=== PATIENT | male | born 1955 | race Caucasian/White ===

== ENCOUNTER → 2021-04-11 14:51 | Outpatient (CLI) | payer OTHER ==
[2021-04-11 16:50] LABS: LDL-HDL RATIO 1.4 ratio (1.5-3.5)
== END | disposition home or self-care (01) ==
LOC: D.LABREF 14:51
PROVIDERS: ATTEND Internal Medicine Interventional Cardiology
DX: E78.5 Hyperlipidemia, unspecified (principal)

== ENCOUNTER → 2021-05-02 11:02 | Outpatient (CLI) | payer OTHER ==
--- NOTE | 2021-05-06 08:13 | EC ---
PATIENT:JEANINE BISHOP DATE OF SERVICE: 05/02/21 SEX: M MEDICAL RECORD: [id number] DATE OF : 59 LOCATION:[facility] [place] AGE OF PATIENT: 65 ADMISSION DATE: 05/02/21 REFERRING PHYSICIAN: INTERPRETING PHYSICIAN: NELLIE ISAACS MD ECHOCARDIOGRAM REPORT ECHO CHARGES 4 ECHO COMPLETE Date: 05/02/21 CLINICAL DIAGNOSIS: HX OF HTN / HEART MURMUR ASSESS EF AND VALVES ECHOCARDIOGRAPHIC MEASUREMENTS (adult normal given) AC root (d.<3.7cm) 3.2 cm LV Septum d (<1.2 cm> 1.3 cm Valve Excursion 2.3 cm LV Septum (systole) 1.6 cm Left Atria (s.<4.0cm> 4.6 cm LVPW d(<1.2cm) 1.5 cm RV (d.<2.3cm) 3.4 cm LVPW (sytole) 2.0 cm LV diastole(<5.6CM) 5.3 cm MV E-F(>70mm/sec) cm LV systole 3.2 cm LVOT Diameter 2.4 cm MV exc.(>10mm) 1.9 cm Est.ejection fraction (50-75%) % DOPPLER: LVIT cm/sec A 57.0 cm/sec E 93.0 cm/sec LA cm/sec RVSP 22 mmHg LVOT 71 cm/sec AOP1/2T m/s Asc. Ao 125 cm/sec RVOT 80 cm/sec RA cm/sec PA 107 cm/sec AV Gradient Peak 6.23 mmHg AV Mean 3.56 mmHg AV Area 2.7 cm MV Gradient Peak 3.79 mmHg MV Mean 1.08 mmHg MV Area cm COMMENTS: Food Preservation Scientist: 2 CARTER MULLEN Cardiovascular Surgical Tech: 3 Dr. Hill TAPE# PACS Pericardial Effusion N DATE OF SERVICE: Adequate 2D, color flow imaging, spectral Doppler, and M-Mode. FINDINGS: Mild LVH. LV internal dimension is normal. Wall motion is normal. EF is greater than or equal to 55%. Aortic valve is tricuspid. No evidence of stenosis by Doppler interrogation. There is mild AI by color flow imaging. Left atrium is dilated at 4.6 cm. Mitral valve shows no prolapse. Trace to mild MR. Right side is grossly normal. Mild TR. ECHOCARDIOGRAM REPORT [id number] JEANINE BISHOP TRANSINT:[id number] Voice Confirmation ID: [id number] DOCUMENT ID: [id number] NELLIE ISAACS MD at [id number] CC: [id number] DICTATION DATE: 05/05/21 1056 METAL TUBE CUTTER: 05/05/21 1937 DEP CLI 05/02/21 [place] [id number] [place] [id number]
== END | disposition home or self-care (01) ==
LOC: D.HCCECHO 09:30
PROVIDERS: ATTEND Internal Medicine Interventional Cardiology
DX: I10 Essential (primary) hypertension (principal)